=== PATIENT | female | born 1990 | race African-American/Black ===

== ENCOUNTER 2017-05-29 15:28 | Emergency (ER) | payer OTHER ==
[~2017-05-29 15:28] MED LIST: FLEXERIL10 MG PO; MEDROL DOSEPAK4 MG DOB; MOTRIN600 M2 DOB; NO MEDICATIONS; NORFLEX100 M1 PO; TYLENOL #3 PO; VOLTAREN50 MG PO
== END 2017-05-29 16:05 | disposition home or self-care (01) ==
LOC: CED 15:28 → CFTX 15:28
DX: L73.9 Follicular disorder, unspecified (principal); F17.200 Nicotine dependence, unspecified, uncomplicated; Z79.899 Other long term (current) drug therapy
CPT/HCPCS: 99282

== ENCOUNTER 2017-06-20 17:29 | Emergency (ER) | payer OTHER ==
[~2017-06-20] VITALS: Ht 152.4 cm; Wt 88.0 kg
[2017-06-20 18:33] LABS: BASOPHIL% 0.3 % (0-2.5); EOSINOPHIL# 0.1 X10e3 (0-0.7); HEMATOCRIT 33.9 % (35.0-45.0); HEMOGLOBIN 11.1 gm/dL (12.0-16.0); LYMPHOCYTE# 2.7 X10e3 (1.0-3.5); MEAN CELL VOLUME 77.6 FL (83-96); MEAN CORPUSCULAR HEMOGLOBIN 25.5 PG (28-34); MEAN CORPUSCULAR HGB CONC 32.9 g/dL (30-36); MEAN PLATELET VOLUME 8.9 FL (6.5-11.5); MONOCYTE# 0.7 X10e3 (0-1.0); MONOCYTE% 7.1 % (3.0-12.0); NEUTROPHIL# 6.4 X10e3 (1.5-7.1); NEUTROPHIL% 64.6 % (40-75); PLATELET COUNT 214 X10e3 (140-420); RED BLOOD COUNT 4.37 X10e (3.90-5.30); RED CELL DISTRIBUTION WIDTH 14.7 % (11.0-15.5)
[2017-06-20 18:34] LABS: DIFF IND NO
[2017-06-20 18:42] LABS: URINE SOURCE CATH
[2017-06-20 18:53] LABS: URINE APPEARANCE CLOUDY; URINE BILIRUBIN NEG (NEG); URINE BLOOD 3+ (NEG); URINE COLOR YELLOW; URINE GLUCOSE NEG (NEG); URINE KETONE 2+ (NEG); URINE LEUKOCYTE ESTERASE 1+ (NEG); URINE NITRATE NEG (NEG); URINE PH 5.5 (5-8); URINE PROTEIN NEG (NEG); URINE SPECIFIC GRAVITY 1.034 (1.003-1.035)
[2017-06-20 18:56] LABS: CULTURE INDICATED? YES; URINE BACTERIA AUWI 2+ (NEGATIVE); URINE SQUAMOUS EPITHELIAL CELL FEW /[HPF]
[2017-06-20 19:03] LABS: BUN/CREATININE RATIO 21.66; CREATININE SERUM 0.6 mg/dL (0.6-1.4); GLOM FILT RATE Estimated 146.8 mL/min (>60); POTASSIUM 3.5 mmol/L (3.5-5.1)
== END 2017-06-20 19:21 | disposition home or self-care (01) ==
LOC: CED 17:29 → CFTX 17:29
PROVIDERS: Nurse Practitioner
DX: O20.0 Threatened abortion (principal)
CPT/HCPCS: 80048; 81003; 84702; 84703; 85025; 86900; 86901; 87086; 99284